=== PATIENT | female | born 1960 | race Caucasian/White ===

== ENCOUNTER 2017-05-22 16:21 | Emergency (ER) | payer BC ==
[~2017-05-22] VITALS: Ht 165.1 cm; Wt 97.5 kg
[~2017-05-22 16:21] MED LIST: AMITRIPTYLINE H10 MG PO; ASPIR 8181 MG PO; HUMALOG100 UNIT/3 SC; HYDROCHLOROTHIA25 MG; LEVEMIR100 UNIT/1 SC; LIPITOR20 MG PO; LISINOPRIL10 MG PO; METFORMIN HCL500 M2 PO; METFORMIN HCL500 MG PO; METOPROLOL SUCC25 MG PO; NITROGLYCERIN0.4 MG SL; NOVOLOG FLEX PEN SC; ROPINIROLE HCL1 MG PO
[2017-05-22 18:18] LABS: BASOPHILS # (AUTO) 0.1 (0.0-0.1); BASOPHILS % 0.6 % (0.0-1.0); EOSINOPHILS # (AUTO) 0.1 (0.0-0.4); EOSINOPHILS % 1.2 % (0.0-6.0); HEMATOCRIT 44.1 % (34.2-44.1); HEMOGLOBIN 15.4 g/dL (12.0-16.0); LYMPHOCYTES # (AUTO) 3.8 (1.0-3.2); LYMPHOCYTES % 32.4 % (18.0-39.1); MEAN CORPUSCULAR HEMOGLOBIN 29.2 pg (28-32); MEAN CORPUSCULAR HGB CONC 34.9 g/dL (31-35); MEAN CORPUSCULAR VOLUME 83.7 fL (81-99); MONOCYTES # (AUTO) 0.5 (0.2-0.8); MONOCYTES % 4.4 % (4.4-11.3); NEUTROPHILS # (AUTO) 7.1 (2.1-6.9); NEUTROPHILS % 60.9 % (38.7-80.0); PLATELET COUNT 415 x10e3/uL (140-360); RED BLOOD COUNT 5.27 x10e6/uL (3.6-5.1); RED CELL DISTRIBUTION WIDTH 12.4 % (11.7-14.4)
[2017-05-22 18:23] LABS: INR 0.94; PROTHROMBIN TIME 11.8 seconds (11.9-14.5)
[2017-05-22 18:34] LABS: ALANINE AMINOTRANSFERASE 36 IU/L (0-55); ALBUMIN 3.5 g/dL (3.5-5.0); ALBUMIN/GLOBULIN RATIO 0.8 (0.8-2.0); ALKALINE PHOSPHATASE 99 IU/L (40-150); ANION GAP 19.5 mmol/L (8-16); BLOOD UREA NITROGEN 17 mg/dL (7-26); BUN/CREATININE RATIO 15 (6-25); CALCIUM 10.4 mg/dL (8.4-10.2); CARBON DIOXIDE 24 mmol/L (22-29); CHLORIDE 91 mmol/L (98-107); CREATININE, SERUM 1.15 mg/dL (0.57-1.11); EST GLOMERULAR FILTRATION RATE 48 ML/MIN (60-); GLUCOSE 361 mg/dL (74-118); POTASSIUM 3.5 mmol/L (3.5-5.1); SODIUM 131 mmol/L (136-145)
[2017-05-22] MEDS ORDERED: INSULIN REGULAR, HUMAN 100 UNIT/1 ML 3ML VIAL SQ ONE (20:30)
[2017-05-22] MEDS ORDERED: SODIUM CHLORIDE 0.9% 1000ML 1,000 ML IV SCH (20:30)
[2017-05-22 21:25] LABS: BILIRUBIN,URINE NEGATIVE (NEGATIVE); COLOR,URINE YELLOW (YELLOW); KETONES,URINE NEGATIVE (NEGATIVE); LEUKOCYTE ESTERASE ,URINE 2+ (NEGATIVE); NITRITE,URINE NEGATIVE (NEGATIVE); URINE UROBILINOGEN 0.2 mg/dL (0.2 - 1)
[2017-05-22 21:26] LABS: CLARITY,URINE SL CLOUDY (CLEAR); PROTEIN,URINE DIPSTICK TRACE (NEGATIVE)
[2017-05-22 21:37] LABS: BACTERIA,URINE MANY /HPF; EPITHELIAL CELLS,URINE RARE /LPF; RBC,URINE 0-5 /HPF (0-5)
== END 2017-05-22 23:48 | disposition home or self-care (01) ==
LOC: ER 16:21
DX: E11.65 Type 2 diabetes mellitus with hyperglycemia (principal); N30.91 Cystitis, unspecified with hematuria
CPT/HCPCS: 36415; 80053; 81001; 82948; 85025; 85610; 85730; 96360; 99283; J7030

== ENCOUNTER 2023-09-03 20:39 | Observation (INO) | payer MEDICARE, BC ==
[~2023-09-03] VITALS: Ht 154.9 cm; Wt 79.4 kg
[2023-09-03 21:39] VITALS: TEMP 98.8
[2023-09-03] MEDS ORDERED: SODIUM CHLORIDE FLUSH 10 ML SYR IV PRN (22:00)
[2023-09-03 22:04] LABS: BASOPHILS # (AUTO) 0.1 (0.0-0.1); BASOPHILS % 0.5 % (0.0-1.0); EOSINOPHILS # (AUTO) 0.1 (0.0-0.4); EOSINOPHILS % 1.1 % (0.0-6.0); HEMATOCRIT 40.9 % (34.2-44.1); HEMOGLOBIN 13.2 g/dL (12.0-16.0); LYMPHOCYTES # (AUTO) 3.6 (1.0-3.2); LYMPHOCYTES % 29.1 % (18.0-39.1); MEAN CORPUSCULAR HEMOGLOBIN 28.8 pg (28-32); MEAN CORPUSCULAR HGB CONC 32.3 g/dL (31-35); MEAN CORPUSCULAR VOLUME 89.3 fL (81-99); MONOCYTES # (AUTO) 0.7 (0.2-0.8); MONOCYTES % 5.9 % (4.4-11.3); NEUTROPHILS # (AUTO) 7.8 (2.1-6.9); PLATELET COUNT 216 x10e3/uL (140-360); RED BLOOD COUNT 4.58 x10e6/uL (3.6-5.1); RED CELL DISTRIBUTION WIDTH 12.4 % (11.7-14.4); WHITE BLOOD COUNT 12.33 x10e3/uL (4.8-10.8)
[2023-09-03 22:23] LABS: ALBUMIN 3.9 g/dL (3.5-5.0); ALBUMIN/GLOBULIN RATIO 1.2 (0.8-2.0); ANION GAP 11.8 mmol/L (8-16); BILIRUBIN,TOTAL 0.2 mg/dL (0.2-1.2); CALCIUM 9.8 mg/dL (8.4-10.2); CREATININE, SERUM 0.87 mg/dL (0.57-1.11); POTASSIUM 3.8 mmol/L (3.5-5.1); TOTAL PROTEIN 7.1 g/dL (6.5-8.1)
[2023-09-03 22:38] LABS: TROPONIN I 0.002 ng/mL (0-0.300)
[2023-09-03] MEDS: HYDRALAZINE HCL 20 MG/ML VIAL IV STA (22:44)
[2023-09-03 23:30] VITALS: PULSE 58; RESP 21
[2023-09-04] VITALS (9 sets, daily range): BP systolic 144–178; BP diastolic 63–69; PULSE 54–65; RESP 16–20; TEMP 98.1–98.4; O2SAT 96–98
[2023-09-04] MEDS ORDERED: SODIUM CHLORIDE FLUSH 10 ML SYR INJ PRN (00:15)
[2023-09-04] MEDS: ONDANSETRON HCL INJ 2MG/ML 2ML 2 MG/ML VIAL IV PRN ×2 (00:51→16:27)
[2023-09-04] MEDS ORDERED: AMLODIPINE BESY10 MG PO (03:00)
[2023-09-04] MEDS ORDERED: METFORMIN HCL1000 MG (03:00)
[2023-09-04] MEDS ORDERED: BENICAR20 MG PO (03:00)
[2023-09-04] MEDS ORDERED: BYSTOLIC10 MG PO (03:00)
[2023-09-04] MEDS ORDERED: ATORVASTATIN CA20 MG PO (03:00)
[2023-09-04] MEDS ORDERED: CLOPIDOGREL75 MG PO (03:00)
[2023-09-04 07:47] LABS: CREATINE KINASE 43 IU/L (29-168)
[2023-09-04 08:32] LABS: TROPONIN I < 0.001 ng/mL (0-0.300)
[2023-09-04] MEDS: AMLODIPINE BESYLATE 10 MG TAB PO SCH (09:30)
[2023-09-04] MEDS: METFORMIN HCL 500 MG TAB CR PO SCH (09:30)
[2023-09-04] MEDS: CLOPIDOGREL BISULFATE 75 MG TAB PO SCH (09:30)
[2023-09-04] MEDS: NEBIVOLOL 10 MG TAB PO SCH (09:31)
[2023-09-04] MEDS: LISINOPRIL 20 MG TAB PO SCH (09:31)
[2023-09-04] MEDS: ASPIRIN 81 MG CHEW TAB PO SCH (09:31)
[2023-09-04] MEDS: HYDROCHLOROTHIAZIDE 25 MG TAB PO SCH (09:31)
[2023-09-04 11:44] LABS: CREATINE KINASE 40 IU/L (29-168)
[2023-09-04 11:51] LABS: TROPONIN I < 0.001 ng/mL (0-0.300)
[2023-09-04] MEDS: HYDRALAZINE HCL 20 MG/ML VIAL IV PRN (12:38)
[2023-09-04] MEDS: ACETAMINOPHEN 325 MG TAB PO PRN (16:27)
[2023-09-04] MEDS: AMITRIPTYLINE HCL 25 MG TAB PO SCH (21:07)
[2023-09-04] MEDS: ATORVASTATIN 20 MG TAB PO SCH (21:07)
[2023-09-05] VITALS (7 sets, daily range): BP systolic 131–143; BP diastolic 56–68; PULSE 51–54; RESP 17–20; TEMP 97.9–98.5; O2SAT 96–99
[2023-09-05] MEDS: KETOROLAC TROMETHAMINE 30 MG/ML VIAL IV STA (06:17)
[2023-09-05 06:29] LABS: BASOPHILS # (AUTO) 0.1 (0.0-0.1); BASOPHILS % 0.5 % (0.0-1.0); EOSINOPHILS # (AUTO) 0.1 (0.0-0.4); EOSINOPHILS % 0.9 % (0.0-6.0); HEMATOCRIT 44.1 % (34.2-44.1); HEMOGLOBIN 14.7 g/dL (12.0-16.0); LYMPHOCYTES # (AUTO) 3.3 (1.0-3.2); LYMPHOCYTES % 25.1 % (18.0-39.1); MEAN CORPUSCULAR HEMOGLOBIN 29.7 pg (28-32); MEAN CORPUSCULAR HGB CONC 33.3 g/dL (31-35); MEAN CORPUSCULAR VOLUME 89.1 fL (81-99); MONOCYTES # (AUTO) 0.8 (0.2-0.8); MONOCYTES % 5.6 % (4.4-11.3); NEUTROPHILS % 67.4 % (38.7-80.0); PLATELET COUNT 219 x10e3/uL (140-360); RED BLOOD COUNT 4.95 x10e6/uL (3.6-5.1); RED CELL DISTRIBUTION WIDTH 12.4 % (11.7-14.4); WHITE BLOOD COUNT 13.33 x10e3/uL (4.8-10.8)
[2023-09-05 06:49] LABS: ALBUMIN 3.7 g/dL (3.5-5.0); ANION GAP 15.8 mmol/L (8-16); BILIRUBIN,TOTAL 0.5 mg/dL (0.2-1.2); CALCIUM 9.6 mg/dL (8.4-10.2); CREATININE, SERUM 0.86 mg/dL (0.57-1.11); POTASSIUM 3.8 mmol/L (3.5-5.1); TOTAL PROTEIN 7.5 g/dL (6.5-8.1)
[2023-09-06] VITALS: BP 144/66; PULSE 53; RESP 18; TEMP 98.2; O2SAT 96
[2023-09-06 04:00] VITALS: BP 131/65; PULSE 55; RESP 18; TEMP 98.3; O2SAT 97
[2023-09-06] MEDS: KETOROLAC TROMETHAMINE 30 MG/ML VIAL IV STA (07:01)
[2023-09-06 08:30] VITALS: BP 141/66; PULSE 71; RESP 18; TEMP 97.9; O2SAT 98
[2023-09-06 08:38] VITALS: BP 141/66; PULSE 71; RESP 18; TEMP 97.9; O2SAT 98
[2023-09-06 11:38] VITALS: BP 139/70; PULSE 52; RESP 18; TEMP 97.9; O2SAT 99
== END 2023-09-06 12:49 | disposition home or self-care (01) ==
LOC: ER 20:45 → ERHOLD 09-04 00:04 → MED/SURG3 09-04 02:28
PROVIDERS: ADMIT Internal Medicine; ATTEND Internal Medicine
DX: I16.0 Hypertensive urgency (principal); R51.9 Headache, unspecified; E11.9 Type 2 diabetes mellitus without complications; E78.5 Hyperlipidemia, unspecified; D72.829 Elevated white blood cell count, unspecified; E66.9 Obesity, unspecified; Z68.33 Body mass index [BMI] 33.0-33.9, adult; F17.200 Nicotine dependence, unspecified, uncomplicated; Z71.6 Tobacco abuse counseling; I07.1 Rheumatic tricuspid insufficiency; Z91.041 Radiographic dye allergy status; Z11.52 Encounter for screening for COVID-19; Z79.82 Long term (current) use of aspirin; Z79.84 Long term (current) use of oral hypoglycemic drugs; Z79.02 Long term (current) use of antithrombotics/antiplatelets; Z79.899 Other long term (current) drug therapy
CPT/HCPCS: 36415 ×4; 71045; 80053 ×2; 80061; 82550; 82948 ×2; 84484 ×2; 85025 ×2; 93005; 93306; 94799; 99284; G0378 ×3; J0360 ×2; J1885 ×2; J2405; U0002